=== PATIENT | female | born 2000 | race Caucasian/White ===

== ENCOUNTER 2023-01-25 09:33 | Emergency (ER) | payer BC ==
[~2023-01-25] VITALS: Ht 154.9 cm; Wt 52.2 kg
[2023-01-25 09:41] VITALS: BP_SYST 106; PULSE 87; RESP 18; O2SAT 100
[2023-01-25 11:08] VITALS: BP_SYST 106; PULSE 83; RESP 16; TEMP 97.2; O2SAT 100
== END 2023-01-25 11:08 | disposition home or self-care (01) ==
LOC: SED 09:33
DX: R10.30 Lower abdominal pain, unspecified (principal); R55 Syncope and collapse; Z53.21 Procedure and treatment not carried out due to patient leaving prior to being seen by health care provider
CPT/HCPCS: 99281